=== PATIENT | female | born 1965 | race Two or more races ===

== ENCOUNTER 2024-11-16 15:32 | Emergency (ER) | payer BC | END 2024-11-16 17:35 | disposition home or self-care (01) | LOC: JD.ED 15:32 | DX: M25.511 Pain in right shoulder (principal); M25.531 Pain in right wrist; M25.561 Pain in right knee; I10 Essential (primary) hypertension; Z88.0 Allergy status to penicillin; W18.39XA Other fall on same level, initial encounter | CPT/HCPCS: 73030-26-RT; 73030-RT; 73110-26-RT; 73110-RT; 99283 ==